=== PATIENT | male | born 1980 | race Asian ===

== ENCOUNTER 2019-12-08 00:38 | Inpatient (IN) | payer OTHER ==
[~2019-12-08] VITALS: Ht 167.6 cm; Wt 225.8 kg
[2019-12-08] MEDS ORDERED: BACITRACIN 0.9 GM PACKET OINTMENT TP ONE (01:00)
[2019-12-08] MEDS ORDERED: PERTUSS(ACELL),DIPH,TET VAC/PF 0.5 ML VIAL IM ONE (01:00)
[2019-12-08] MEDS ORDERED: BUSP5TAB20 PO (01:09)
[2019-12-08] MEDS ORDERED: TRAZ-252 PO (01:09)
[2019-12-08] MEDS ORDERED: LISI-660 PO (01:09)
[2019-12-08] MEDS ORDERED: ATOR10TA84 PO (01:09)
[2019-12-08] MEDS ORDERED: OMEP10 PO (01:09)
[2019-12-08] MEDS ORDERED: FLUO10CA23 PO (01:09)
[2019-12-08] MEDS ORDERED: METF-960 PO (01:09)
[2019-12-08] MEDS ORDERED: ASPI-728 PO (01:09)
[2019-12-08] MEDS ORDERED: CHL25 PO (01:09)
[2019-12-08 01:18] LABS: BASOPHILS % (AUTO) 0.5 % (0.0-2.0); EOSINOPHILS % (AUTO) 1.9 % (1.0-6.0); HEMATOCRIT 41.7 % (41-53); HEMOGLOBIN 14.2 g/dL (13.5-17.5); LYMPHOCYTES # (AUTO) 3.5 K/uL (1.0-4.8); LYMPHOCYTES % (AUTO) 46.3 % (22.0-44.0); MEAN CORPUSCULAR HGB CONC 34.1 G/dL (31.0-37.0); MEAN CORPUSCULAR VOLUME 91 fL (80-100); MONOCYTES # (AUTO) 0.5 K/uL (0.1-1.0); MONOCYTES % (AUTO) 6.4 % (2.0-9.0); NEUTROPHILS # (AUTO) 3.4 K/uL (1.8-7.7); NEUTROPHILS % (AUTO) 44.9 % (40.0-70.0); PLATELET COUNT (AUTO) 258 K/uL (150-450); RED BLOOD CELL COUNT(AUTO) 4.58 MIL/uL (4.50-5.90); RED CELL DISTRIBUTION WIDTH 12.6 % (11.5-14.5)
[2019-12-08 01:23] LABS: GLUCOSE,POINT OF CARE 240 MG/DL (70-110)
[2019-12-08 01:26] LABS: AMPHET/METH SCREEN,URINE NEGATIVE (NEGATIVE); BARBITURATE SCREEN, URINE NEGATIVE (NEGATIVE); BENZODIAZEPINES SCREEN,URINE NEGATIVE (NEGATIVE); CANNABINOID SCREEN,URINE NEGATIVE (NEGATIVE); COCAINE SCREEN,URINE NEGATIVE (NEGATIVE); METHADONE SCREEN, URINE NEGATIVE (NEGATIVE); OPIATE SCREEN,URINE NEGATIVE (NEGATIVE)
[2019-12-08] MEDS ORDERED: ONDANSETRON HCL 4 MG/2 ML VIAL IM ONE (01:30)
[2019-12-08 01:32] LABS: PHENCYCLIDINE SCREEN,URINE NEGATIVE (NEGATIVE)
[2019-12-08 01:37] LABS: ANION GAP 15 mmol/L (8-16); CALCIUM, TOTAL 9.1 mg/dL (8.8-10.5); CARBON DIOXIDE 24 mmol/L (22-29); CHLORIDE 100 mmol/L (98-107); GLOMERULAR FILTR. RATE CALC > 60 mL/min (>60); GLUCOSE,RANDOM 235 mg/dL (70-110); POTASSIUM 3.2 mmol/L (3.5-5.1); SODIUM SERUM 139 mmol/L (136-145); UREA NITROGEN, BLOOD 15 mg/dL (7-18)
[2019-12-08 01:42] LABS: ALANINE AMINOTRANSFERASE 83 U/L (12-78); ALBUMIN 4.8 g/dL (3.4-5.0); ALKALINE PHOSPHATASE 89 U/L (46-116); ASPARTATE AMINOTRANSFERASE 40 U/L (15-37); BILIRUBIN,TOTAL 0.4 mg/dL (0.1-1.0); TOTAL PROTEIN, SERUM 8.2 g/dL (6.4-8.2)
[2019-12-08 02:16] LABS: SALICYLATE 3.2 mg/dL (2.8-20.0)
[2019-12-08 02:43] LABS: ACETAMINOPHEN < 2 mcg/mL (10-30)
[2019-12-08] MEDS ORDERED: ZOLPIDEM TARTRATE 10 MG TABLET PO PRN (02:45)
[2019-12-08] MEDS ORDERED: LORazepam 2 MG TABLET PO PRN (02:45)
[2019-12-08] MEDS ORDERED: POTASSIUM CHLORIDE 10% 40 MEQ/30 ML LIQUID UDCUP PO ONE (03:00)
[2019-12-08 06:00] VITALS: BP 123/66
[2019-12-08] MEDS: MetFORMIN HCL 500 MG TABLET PO SCH (06:58)
[2019-12-08] MEDS ORDERED: PNEUMOCOCCAL VACCINE POLYVALENT 0.5 ML VIAL [PPSV23] IM ONE (07:00)
[2019-12-08] MEDS: LISINOPRIL 5 MG TABLET PO SCH (08:50)
[2019-12-08] MEDS: ATORVASTATIN CALCIUM 10 MG TABLET PO SCH (08:50)
[2019-12-08] MEDS: ASPIRIN 81 MG CHEWABLE TABLET PO SCH (08:50)
[2019-12-08] MEDS: NICOTINE 14 MG/24 HOUR PATCH TD SCH (08:55)
[2019-12-08] MEDS: CHLORTHALIDONE 25 MG TABLET PO SCH (08:56)
[2019-12-08] MEDS: OMEPRAZOLE 10 MG CAPSULE PO SCH (08:57)
[2019-12-08 09:57] VITALS: BP 152/55
[2019-12-08] MEDS ORDERED: IBUPROFEN 400 MG TABLET PO PRN (12:00)
[2019-12-08] MEDS ORDERED: ALBUTEROL SULFATE HFA 90 MCG/PUFF 8 GM INHALER IH PRN (12:00)
[2019-12-08] MEDS ORDERED: CloNIDine HCL 0.1 MG TABLET PO PRN (12:00)
[2019-12-08] MEDS ORDERED: GuaiFENesin/D-METHORPHAN [SUGAR-FREE] 200-20MG/10 ML SYRUP UDCUP PO PRN (12:00)
[2019-12-08] MEDS ORDERED: DOCUSATE SODIUM 100 MG CAPSULE PO PRN (12:00)
[2019-12-08] MEDS ORDERED: LOPERAMIDE HCL 2 MG CAPSULE PO PRN (12:00)
[2019-12-08] MEDS ORDERED: MAG HYDROX/AL HYDROX/SIMETH ES 30 ML SUSPENSION UDCUP PO PRN (12:00)
[2019-12-08] MEDS ORDERED: MAGNESIUM HYDROXIDE SUSPENSION 30 ML UDCUP PO PRN (12:00)
[2019-12-08] MEDS ORDERED: PETROLATUM,WHITE 28 GM JELLY TP PRN (12:00)
[2019-12-08] MEDS ORDERED: NICOTINE 14 MG/24 HOUR PATCH TD PRN (12:00)
[2019-12-08] MEDS ORDERED: ONDANSETRON HCL 4 MG TABLET PO PRN (12:00)
[2019-12-08] MEDS ORDERED: ACETAMINOPHEN 325 MG TABLET PO PRN (12:00)
[2019-12-08] MEDS: FLUoxetine HCL 10 MG CAPSULE PO SCH (13:17)
[2019-12-08 16:00] VITALS: BP 142/91
[2019-12-08] MEDS: BusPIRone HCL 5 MG TABLET PO SCH (16:06)
[2019-12-09 06:39] LABS: GLUCOMETER DEV NAME(LOC) 3E.I 2; GLUCOSE,POINT OF CARE 179 MG/DL (70-110)
[2019-12-09] MEDS: MetFORMIN HCL 500 MG TABLET PO SCH (06:40)
[2019-12-09 08:05] LABS: CHOL/HDL RATIO 5.1 (4.2-7.3); CHOLESTEROL 143 mg/dL (131-200); HDL CHOLESTEROL 28 mg/dL (40-60); TRIGLYCERIDES 478 mg/dL (15-150)
[2019-12-09 09:10] VITALS: BP 136/81
[2019-12-09] MEDS: ASPIRIN 81 MG CHEWABLE TABLET PO SCH (09:10)
[2019-12-09] MEDS: BusPIRone HCL 5 MG TABLET PO SCH ×2 (09:10→16:26)
[2019-12-09] MEDS: CHLORTHALIDONE 25 MG TABLET PO SCH (09:10)
[2019-12-09] MEDS: LISINOPRIL 5 MG TABLET PO SCH (09:12)
[2019-12-09] MEDS: ATORVASTATIN CALCIUM 10 MG TABLET PO SCH (09:12)
[2019-12-09] MEDS: FLUoxetine HCL 10 MG CAPSULE PO SCH (09:13)
[2019-12-09] MEDS: OMEPRAZOLE 10 MG CAPSULE PO SCH (09:13)
[2019-12-09] MEDS: NICOTINE 14 MG/24 HOUR PATCH TD SCH (09:13)
[2019-12-09 18:10] VITALS: BP 143/70
[2019-12-09] MEDS ORDERED: POTASSIUM CHLORIDE 10 MEQ ER TABLET PO ONE (18:15)
[2019-12-10 05:42] LABS: GLUCOMETER DEV NAME(LOC) 3E.I 2; GLUCOSE,POINT OF CARE 191 MG/DL (70-110)
[2019-12-10] MEDS: MetFORMIN HCL 500 MG TABLET PO SCH (06:46)
[2019-12-10] MEDS: OMEPRAZOLE 10 MG CAPSULE PO SCH (08:27)
[2019-12-10] MEDS: LISINOPRIL 5 MG TABLET PO SCH (08:27)
[2019-12-10] MEDS: NICOTINE 14 MG/24 HOUR PATCH TD SCH (08:27)
[2019-12-10] MEDS: BusPIRone HCL 5 MG TABLET PO SCH (08:27)
[2019-12-10] MEDS: ASPIRIN 81 MG CHEWABLE TABLET PO SCH (08:27)
[2019-12-10] MEDS: FLUoxetine HCL 10 MG CAPSULE PO SCH (08:27)
[2019-12-10] MEDS: ATORVASTATIN CALCIUM 10 MG TABLET PO SCH (08:27)
[2019-12-10] MEDS: CHLORTHALIDONE 25 MG TABLET PO SCH (08:28)
[2019-12-10 10:02] VITALS: BP 141/89
== END 2019-12-10 13:00 | disposition home or self-care (01) | DRG 881 ==
LOC: EMS 00:39 → 3EI 04:00
PROVIDERS: ADMIT Psychiatry & Neurology Psychiatry; ATTEND Psychiatry & Neurology Psychiatry
DX: F32.9 Major depressive disorder, single episode, unspecified (principal); E11.65 Type 2 diabetes mellitus with hyperglycemia; E87.6 Hypokalemia; E78.5 Hyperlipidemia, unspecified; E78.00 Pure hypercholesterolemia, unspecified; I10 Essential (primary) hypertension; F43.10 Post-traumatic stress disorder, unspecified; F17.210 Nicotine dependence, cigarettes, uncomplicated; F19.10 Other psychoactive substance abuse, uncomplicated; T50.901A Poisoning by unspecified drugs, medicaments and biological substances, accidental (unintentional), initial encounter; K21.9 Gastro-esophageal reflux disease without esophagitis; Y92.89 Other specified places as the place of occurrence of the external cause
CPT/HCPCS: 84132; 90715; 93005; G0480; G0481; J2405